=== PATIENT | female | born 1975 ===

== ENCOUNTER → 2018-03-03 21:48 | Outpatient (REF) | payer OTHER, SELFPAY ==
[2018-03-03 22:21] LABS: Add Manual Diff / Slide Review NO; Basophils Percent Auto 0.3 % (0-2); Eosinophils Percent Auto 1.6 % (2-4); Hematocrit 41.2 % (36-46); Lymphocytes Percent Auto 28.1 % (25-40); Mean Corpuscular Volume 88.2 fL (80-100); Monocytes Percent Auto 4.9 % (3-14); Neutrophils Absolute Auto 5100 /uL (3000-5900); Neutrophils Percent Auto 65.1 % (50-75); Platelet Count 283 X10^3/uL (150-400); Red Blood Cell Count 4.67 X10^6/uL (4.0-5.2); Red Cell Distribution Width 13.1 % (11.6-14.8); White Blood Cell Count 7.9 X10^3/uL (4.5-11.0)
[2018-03-03 22:24] LABS: HEMOLYSIS < 15 (0-50); Iron 89 ug/dL (37-170)
[2018-03-03 22:37] LABS: Percent Iron Saturation 25 % (15-50); Total Iron Binding Capacity 355 ug/dL (265-497); Transferrin 296 mg/dL (206-381)
[2018-03-03 22:56] LABS: Thyroid Stimulating Hormone 0.49 uIU/mL (0.47-4.68)
[2018-03-03 23:07] LABS: Ferritin 28.8 ng/mL (6.27-137)
[2018-03-05 15:13] LABS: Progesterone < 0.5 ng/mL
[2018-03-06 15:02] LABS: Dehydroepiandrosterone Sulfate 206 mcg/dL (19-231)
[2018-03-08 14:33] LABS: Estrogen 220.8 pg/mL
== END ==
LOC: LAB 21:48
PROVIDERS: Visit Provider Naturopath
DX: R68.82 Decreased libido (principal); R79.89 Other specified abnormal findings of blood chemistry; R53.83 Other fatigue; F43.20 Adjustment disorder, unspecified
CPT/HCPCS: 36415; 82627; 82672; 82728; 83540; 83550; 84144; 84443; 85025